=== PATIENT | male | born 1980 | race African-American/Black ===

== ENCOUNTER 2017-05-24 14:49 | Emergency (ER) | payer SELFPAY ==
[~2017-05-24 14:49] MED LIST: ALBUTEROL HFA INH; ATIVAN0.5 MG PO; DICLOFENAC PO; IBUPROFEN800 MG PO; NO MEDICATIONS; PREDNISONE PO; TESSALON PERLE100 M1 PO
[2017-05-24] MEDS ORDERED: ALBUTEROL17 GM (15:00)
== END 2017-05-24 15:44 | disposition home or self-care (01) ==
LOC: SED 14:49
DX: J45.909 Unspecified asthma, uncomplicated (principal); F41.9 Anxiety disorder, unspecified
CPT/HCPCS: 94640; 99284